=== PATIENT | male | born 1980 | race Caucasian/White ===

== ENCOUNTER 2016-10-28 19:55 | Emergency (ER) | payer BC, OTHER ==
[2016-10-28] MEDS ORDERED: DIPH,PERTUSS(ACELL),TET VAC/PF 0.5 ML DISP.SYRIN IM ONE (20:13)
[2016-10-28] MEDS ORDERED: BUPIVACAINE HCL/PF 5 MG/ML 10ML VIAL IV ONE (20:13)
[2016-10-28] MEDS: BUPIVACAINE HCL/PF 5 MG/ML 10ML VIAL IJ ONE (20:15)
[2016-10-28] MEDS: DIPH,PERTUSS(ACELL),TET VAC/PF 0.5 ML DISP.SYRIN IM ONE (20:20)
--- NOTE | 2016-10-28 20:36 | ED Physician Documentation ---
General Adult - HISTORIAN Historian: patient - HPI Stated Complaint: laceration Chief Complaint: Laceration/Recheck/Suture Additional Information: Slid off roof of shed 4 feet to the ground. Cut left lower leg on metal roof. Onset: minutes - ROS CONST: no problems - PAST HX Past History: none Surgeries/Procedures: other (herniorraphy at 3 y/o) Allergies/Adverse Reactions: Allergies Allergy/AdvReac Type Severity Reaction Status Date / Time No Known Allergies Allergy Verified 10/28/16 20:04 Home Medications: Ambulatory Orders Medication Instructions Recorded NK [NK] 10/28/16 - SOCIAL HX Smoking History: non-smoker Alcohol Use: none Drug Use: none - FAMILY HX Family History: No (no signif) - VITAL SIGNS Vital Signs: Vital Signs Temp Pulse Resp BP Pulse Ox 62 16 121/90 98 10/28/16 20:00 10/28/16 20:00 10/28/16 20:00 10/28/16 20:00 - REVIEWED ASSESSMENTS Nursing Assessment Reviewed: Yes Vitals Reviewed: Yes Procedures Wound Location: lower extremity Wound Length: 3.5 Wound's Depth, Shape: linear (sub q) Wound Explored: clean Irrigated w/ Saline (ccs): 100 Betadine Prep?: No (chlorhexadine) Anesthesia: 0.5% Sensorcaine Volume of Anesthetic: 4 Wound Repaired With: sutures Suture Size/Type: 3:0, nylon Number of Sutures: 5 Sterile Dressing Applied?: Yes ED Results Lab/Radiology - Orders Orders: ED Orders Category Date Time Status Bupivacaine HCl/Pf [Marcaine 0.5%] Med 10/28/16 20:12 Once 50 mg IJ NOW ONE Bupivacaine HCl/Pf [Marcaine 0.5%] Med 10/28/16 20:13 Discontinued 50 mg IV .STK-MED ONE Diph,Pertuss(Acell),Tet Vac/Pf [Adacel] Med 10/28/16 20:12 Once 0.5 ml IM .ONCE ONE Diph,Pertuss(Acell),Tet Vac/Pf [Adacel] Med 10/28/16 20:13 Discontinued 0.5 ml IM .STK-MED ONE General Adult Physical Exam - PHYSICAL EXAM GENERAL APPEARANCE: no distress EENT: eye inspection normal, ENT inspection normal NECK: normal inspection, supple RESPIRATORY: no resp distress RECTAL: deferred BACK: other (fludi movements w/o pain) SKIN: warm/dry, normal color, other (3.5 cm lac distal 1/3 anterior left lower leg. no active bleeding) EXTREMITIES: non-tender, no edema NEURO: CN's nml as tested, sensation nml, cognition normal Discharge Clincal Impression: Laceration of leg Qualifiers: Encounter type: initial encounter Laterality: left Qualified Code(s): S81.812A - Laceration without foreign body, left lower leg, initial encounter Referrals: Primary Doctor,No [Primary Care Provider] - 2 Days Additional Instructions: Ask your provider to remove the stitches in 7-10 days. After 24 hours, you can shower as usual. Do not soak the stitches. Home Medications: Ambulatory Orders NK [NK] 10/28/16 Condition: Good Disposition: 01 HOME, SELF-CARE Decision to Admit: NO Decision Time: 20:37
[2016-10-28] MEDS: NEOMYCIN SU/BACITRAC ZN/POLY 1 EACH OINT.PACK TP ONE (20:40)
[2016-10-28] MEDS: CEPHALEXIN 250 MG CAPSULE PO ONE (20:43)
[2016-10-28] MEDS ORDERED: CEPHALEXIN 250 MG CAPSULE ONE (20:44)
[2016-10-28 21:03] VITALS: BP 121/86
== END 2016-10-28 20:45 | disposition home or self-care (01) ==
LOC: ED 19:55
DX: S81.812A Laceration without foreign body, left lower leg, initial encounter (principal); W19.XXXA Unspecified fall, initial encounter; Y93.9 Activity, unspecified; Y99.9 Unspecified external cause status
CPT/HCPCS: 90715; J3490; 12002; 90471; 99283